=== PATIENT | male | born 1945 | race Caucasian/White ===

== ENCOUNTER → 2019-01-17 12:19 | Outpatient (CLI) | payer MEDICARE ==
[2011-01-30 13:04] VITALS: BMI 25.3
[2019-01-17 13:00] LABS: ALBUMIN 3.4 g/dL (3.4-5.0); ANION GAP 10.6 mmol/L (8-16); BILIRUBIN - TOTAL 0.4 mg/dL (0.2-1.3); CALCIUM 9.1 mg/dL (8.5-10.1); CARBON DIOXIDE 31.2 mmol/L (21.0-32.0); CREATININE - SERUM 1.8 mg/dL (0.6-1.3); POTASSIUM - SERUM 4.8 mmol/L (3.5-5.1); PROTEIN - SERUM 6.4 g/dL (6.4-8.2)
== END | disposition home or self-care (01) ==
LOC: D.LABREF 12:19
PROVIDERS: ATTEND Internal Medicine Pulmonary Disease
DX: T81.41XA Infection following a procedure, superficial incisional surgical site, initial encounter (principal)

== ENCOUNTER → 2019-01-18 12:48 | Outpatient (CLI) | payer MEDICARE ==
[2011-01-30 13:04] VITALS: BMI 25.3
== END | disposition home or self-care (01) ==
LOC: D.LABREF 12:48
PROVIDERS: ATTEND Internal Medicine Pulmonary Disease
DX: T81.41XA Infection following a procedure, superficial incisional surgical site, initial encounter (principal)

== ENCOUNTER → 2019-02-14 12:32 | Outpatient (CLI) | payer MEDICARE ==
[2011-01-30 13:04] VITALS: BMI 25.3
[2019-02-14 13:30] LABS: ALBUMIN 3.6 g/dL (3.4-5.0); ANION GAP 10.1 mmol/L (8-16); BILIRUBIN - TOTAL 1.09 mg/dL (0.2-1.3); CALCIUM 9.6 mg/dL (8.5-10.1); CARBON DIOXIDE 35.2 mmol/L (21.0-32.0); CREATININE - SERUM 2.1 mg/dL (0.6-1.3); POTASSIUM - SERUM 3.3 mmol/L (3.5-5.1)
[2019-02-14 13:42] LABS: BASOPHILS 1.4 % (0-2); EOSINOPHILS 2.2 % (0-7); IMMATURE GRANULOCYTES 1.9 % (0-5); LYMPHOCYTES 28.4 % (15-50); MCH 32.4 pg (26.0-34.0); MCHC 30.8 g/dL (31.0-37.0); MCV 105.3 fL (80.0-100.0); MEAN PLATELET VOLUME 9.6 fL (7.4-10.4); MONOCYTES 12.5 % (2-11); NEUTROPHILS 53.6 % (40-80); RBC 2.47 10x6/uL (4.20-6.10); RDW 16.8 % (11.5-14.5); WBC 3.6 10x3/uL (4.8-10.8)
[2019-02-14 13:46] LABS: PLATELET COUNT 210 10x3/uL (130-400)
== END | disposition home or self-care (01) ==
LOC: D.LABREF 12:32
PROVIDERS: ATTEND Internal Medicine Pulmonary Disease
DX: J44.9 Chronic obstructive pulmonary disease, unspecified (principal); Z94.89 Other transplanted organ and tissue status

== ENCOUNTER → 2019-04-19 10:12 | Outpatient (CLI) | payer MEDICARE ==
[2011-01-30 13:04] VITALS: BMI 25.3
[2019-04-19 10:18] LABS: BASOPHILS 0.4 % (0-2); EOSINOPHILS 2.3 % (0-7); HEMATOCRIT 32.4 % (42.0-54.0); HEMOGLOBIN 10.9 g/dL (13.5-17.5); IMMATURE GRANULOCYTES 7.7 % (0-5); LYMPHOCYTES 26.1 % (15-50); MCH 30.8 pg (26.0-34.0); MCHC 33.6 g/dL (31.0-37.0); MCV 91.5 fL (80.0-100.0); MEAN PLATELET VOLUME 8.9 fL (7.4-10.4); MONOCYTES 16.9 % (2-11); NEUTROPHILS 46.6 % (40-80); RBC 3.54 10x6/uL (4.20-6.10); RDW 16.7 % (11.5-14.5); WBC 2.6 10x3/uL (4.8-10.8)
[2019-04-19 10:21] LABS: PLATELET COUNT 139 10x3/uL (130-400)
[2019-04-19 10:27] LABS: INR 1.05 (0.85-1.17); PROTIME 13.6 SECONDS (11.6-15.0)
== END | disposition home or self-care (01) ==
LOC: D.LABREF 10:12
DX: K92.2 Gastrointestinal hemorrhage, unspecified (principal)

== ENCOUNTER → 2019-04-21 16:04 | Outpatient (CLI) | payer MEDICARE ==
[2011-01-30 13:04] VITALS: BMI 25.3
[2019-04-21 16:29] LABS: HEMATOCRIT 34.8 % (42.0-54.0); MCH 30.8 pg (26.0-34.0); MCHC 31.6 g/dL (31.0-37.0); MCV 97.5 fL (80.0-100.0); MEAN PLATELET VOLUME 9.5 fL (7.4-10.4); RBC 3.57 10x6/uL (4.20-6.10); RDW 18.3 % (11.5-14.5); WBC 2.9 10x3/uL (4.8-10.8)
[2019-04-21 16:34] LABS: PLATELET COUNT 173 10x3/uL (130-400)
[2019-04-21 16:36] LABS: INR 1.04 (0.85-1.17); PROTIME 13.5 SECONDS (11.6-15.0)
[2019-04-21 17:20] LABS: BASOPHILS 2 % (0-2); EOSINOPHILS 5 % (0-7); LYMPHOCYTES 37 % (15-50); MONOCYTES 14 % (2-11); NEUTROPHILS 42 % (40-80); PLATELET ESTIMATE NORMAL; PLATELET MORPHOLOGY GIANT PLTS PRESENT
== END | disposition home or self-care (01) ==
LOC: D.LABREF 16:04
DX: K92.2 Gastrointestinal hemorrhage, unspecified (principal); Z79.01 Long term (current) use of anticoagulants